=== PATIENT | male | born 1960 | race Caucasian/White ===

== ENCOUNTER 2025-03-25 10:05 | Inpatient (IN) | payer BC ==
[~2025-03-25] VITALS: Ht 172.7 cm; Wt 72.0 kg
[2025-03-25] MEDS ORDERED: ASPI-1265 PO (10:37)
[2025-03-25] MEDS ORDERED: LISI20TA28 PO (10:37)
[2025-03-25] MEDS ORDERED: FURO-150 PO (10:37)
[2025-03-25] MEDS ORDERED: PROP10TA10 PO (10:37)
--- NOTE | 2025-03-25 10:41 | Physician Documentation ---
History of Present Illness ~ Chief Complaint: Rapid Heartbeat Stated Complaint: CARDIAC SYMPTOMS Time Seen by MD: 10:07 Mode of Arrival: POV HPI 64-year-old male with a history of mitral valve prolapse presenting with chest pain and shortness of breath. Reports the chest pain started this morning about 2-3 hours ago when he was at home resting. Pain is substernal and does not radiate. He describes it more of a tightness rather than a full on pain. Additionally over the last three days he has been short of breath especially with ambulation. He also states that he feels a lot of tightness in his abdomen. States that his heart rate has been very very elevated going up into the 150s at one point. He otherwise denies any dizziness, fever, chills or any other associated symptoms. As mentioned he does have a history of mitral valve prolapse and he is set to see Dr. Elliott, medical office receptionist, on Thursday. Medication Reconciliation Allergies: Coded Allergies: No Known Allergies (Unverified , 03/25/25) Scheduled Aspirin (Aspirin), 1 TAB PO DAILY, (Reported) Furosemide* (Lasix*), 2 TAB PO DAILY, (Reported) Lisinopril (Lisinopril), 0.5 TAB PO DAILY, (Reported) Propranolol Hcl* (Inderal*), 1 TAB PO BID, (Reported) Past Medical History Past Medical History: Heart Valve Disease, Hypertension, Anxiety, Depression Review of Systems All Other Systems at this time: Reviewed and Negative Physical Exam Vital Signs: Temperature: 97.9, Source: Oral, Heart Rate: 144, Respiratory Rate: 25, BP: 142/109, Pulse Oximetry: 98, Weight: 72.730 Physical Exam I have reviewed the triage vitals. CONST: Well developed and well nourished. In no acute distress HENT: Head Atraumatic EYES: Pupils are equal, round and reactive to light. Normal conjunctiva NECK: Normal range of motion. Supple. CARDIO: Tachycardic, grade 4/6 pansystolic murmur auscultated, S1, S2. PULM/CHEST: No respiratory distress. Lungs clear to auscultation. No wheeze ABD: Soft. Minimally diffusely tender to palpation. Nondistended. Bowel sounds normal. No guarding. : Exam deferred MSK: No edema. No deformity. NEURO: Alert and oriented to person, place and time. Moving all extremities SKIN: Warm and dry. PSYCH: Normal mood and affect. Good eye contact. Progress Results/Orders Results/Orders Orders - ANG WELLS MD Culture Blood (03/25/25 10:34) Chest,Single View (03/25/25 10:34) Cta Chest Ct Abd Pelvis (03/25/25 11:12) Ultrasound Of Abdomen (03/25/25 13:38) Page Hospitalist (03/25/25 14:24) Fill Out Med Reconciliation (03/25/25 14:24) Completed Orders - ANG WELLS MD Cbc/Diff (03/25/25 10:34) CK (03/25/25 10:34) CKMB (03/25/25 10:34) D-Dimer (03/25/25 10:34) Lipase (03/25/25 10:34) Pt Inr (03/25/25 10:34) PTT (03/25/25 10:34) Chest,Single View (03/25/25 10:34) PBNP (03/25/25 10:34) MG (03/25/25 10:34) CMP (03/25/25 10:34) Hs Troponin I W Calculations (03/25/25 10:34) Hs Troponin I W Calculations (03/25/25 12:34) Hs Troponin I W Calculations (03/25/25 13:34) Lacticsepsis (03/25/25 10:34) Nitroglycerin Sublingual Tab (Nitrostat (03/25/25 10:40) Iohexol 350mg/Ml 100ml (Omnipaque 350mg/ (03/25/25 12:00) Ua W/Microscopic, Cult If Ind (03/25/25 11:48) Cta Chest Ct Abd Pelvis (03/25/25 11:12) Diphenhydramine Inj (Benadryl Inj.) (03/25/25 12:50) Ultrasound Of Abdomen (03/25/25 13:38) Furosemide Inj (Lasix Inj) (03/25/25 13:40) Normal Saline 500ml Iv Soln (Sodium Chlo (03/25/25 14:05) Piperacillin/Tazo 3.375gm/50ml (Zosyn 3. (03/25/25 14:25) Lisinopril Tablet (Zestril Tablet) (03/25/25 14:40) Medications Received in ER Medications (Trade) Dose Ordered Sig/Janene Route PRN Reason Start Time Stop Time Status Last Admin Dose Admin (Nitrostat SL tablet) 0.4 mg ONCE ONCE SL 03/25/25 10:40 03/25/25 10:41 DC 03/25/25 10:49 0.4 MG (Benadryl inj.) 25 mg ONCE ONCE IV 03/25/25 12:50 03/25/25 12:51 DC 03/25/25 12:51 25 MG (Lasix inj) 20 mg ONCE ONCE IV 03/25/25 13:40 03/25/25 13:54 DC 03/25/25 14:33 20 MG Sodium Chloride 500 ml @ 500 mls/hr ONCE ONCE IV 03/25/25 14:05 03/25/25 15:04 DC 03/25/25 14:33 500 MLS/HR Piperacillin/ Tazobactam/ Dextrose 50 ml @ 12.5 mls/hr ONCE ONCE IV 03/25/25 14:25 03/25/25 18:24 DC 03/25/25 15:27 12.5 MLS/HR (Zestril tablet) 10 mg ONCE ONCE PO 03/25/25 14:40 03/25/25 14:41 DC 03/25/25 15:50 10 MG Vital Signs 03/25/25 03/25/25 03/25/25 03/25/25 10:10 10:19 10:25 10:37 Temp 97.9 Pulse 144 122 Resp 14 25 23 B/P (MAP) 142/109 138/105 (116) Pulse Ox 96 98 97 O2 Delivery Room Air* O2 Flow Rate 0 0 FiO2 21 03/25/25 03/25/25 03/25/25 03/25/25 10:53 11:22 12:00 13:00 Temp 98.2 Pulse 136 130 130 142 Resp 24 22 19 20 B/P (MAP) 132/109 (117) 133/94 (107) 130/86 (101) 141/109 (120) Pulse Ox 99 94 96 94 O2 Flow Rate 0 0 0 0 11/06/1803/25/25 03/25/25 13:30 14:00 14:30 Pulse 141 142 142 Resp 25 26 26 B/P (MAP) 131/101 (111) 139/108 (118) 137/104 (115) Pulse Ox 95 97 97 O2 Flow Rate 0 0 0 Laboratory Tests Test 03/25/25 10:12 03/25/25 10:48 03/25/25 11:48 03/25/25 12:48 White Blood Count 8.7 Red Blood Count 4.52 L Hemoglobin 13.8 L Hematocrit 41.9 L Mean Corpuscular Volume 92.7 Mean Corpuscular Hemoglobin 30.6 Mean Corpuscular Hemoglobin Concent 33.0 Red Cell Distribution Width 15.3 H Platelet Count 245 Mean Platelet Volume 7.9 Neutrophils (%) (Auto) 64.8 Lymphocytes (%) (Auto) 21.8 Monocytes (%) (Auto) 10.8 Eosinophils (%) (Auto) 2.0 Basophils (%) (Auto) 0.6 Neutrophils # (Auto) 5.7 Lymphocytes # (Auto) 1.9 Monocytes # (Auto) 0.9 Eosinophils # (Auto) 0.2 Basophils # (Auto) 0.0 CBC Comment Prothrombin Time 11.4 INR International Normalized Ratio 1.1 Activated Partial Thromboplast Time 25 D-Dimer 0.84 H D-Dimer Comment Coagulation Comments Sodium Level 144 Potassium Level 4.2 Chloride Level 110 H Carbon Dioxide Level 29.3 Anion Gap 5 L Blood Urea Nitrogen 32 H Creatinine 0.99 Estimated GFR/1.73 m2 77 BUN/Creatinine Ratio 32.3 H Glucose Level 142 H Calcium Level 8.7 Magnesium Level 2.3 Total Bilirubin 0.8 Aspartate Amino Transf (AST/SGOT) 137 H Alanine Aminotransferase (ALT/SGPT) 163 H Alkaline Phosphatase 94 Total Creatine Kinase 90 Creatine Kinase MB 2.2 Creatine Kinase MB Relative Index Troponin I High Sensitivity 33 24 Pro-B-Type Natriuretic Peptide 3991 H Total Protein 6.4 Albumin 3.1 L Globulin 3.3 Albumin/Globulin Ratio 0.9 L Lipase 76 Chemistry Comments Lactic Acid Level 1.2 Urine Specimen Description Urinal Urine Color Yellow Urine Clarity Clear Urine pH 6.0 Urine Specific [place] 1.015 Urine Protein Negative Urine Glucose (UA) Negative Urine Ketones Negative Urine Occult Blood Trace-intact Urine Nitrite Negative Urine Bilirubin Negative Urine Urobilinogen 0.2 Urine Leukocyte Esterase Negative Urine RBC 0-2 Urine WBC 0-4 Urine Squamous Epithelial Cells Few Urine Bacteria None seen Urine Mucus Few Urine Culture Indicated Not ind Volume Urine Centrifuged 10 ml Urine Comment Urine Opiates Screen Negative Urine Methadone Screen Negative Urine Fentanyl Screen Negative Urine Barbiturates Screen Negative Urine Phencyclidine Screen Negative Urine Amphetamines Screen Negative Urine Benzodiazepines Screen Negative Urine Cocaine Screen Negative Urine Cannabinoids Screen Positive Drug Screen Comment Troponin I High Sens Percent Delta 27 Troponin I Hi Sens Absolute Change -9 Test 03/25/25 13:52 Troponin I High Sensitivity 29 Troponin I High Sens Percent Delta 20 Troponin I Hi Sens Absolute Change 5 Procalcitonin < 0.05 Microbiology Date/Time Source Procedure Growth Status 03/25/25 10:54 Blood Hand Left Blood Culture - Preliminary NEGATIVE (LESS THAN 24 HOURS) Resulted EKG/XRAY/CT/US/VASC/MRI EKG : Additional Comment EKG as interpreted by ED MD indicating sinus tachycardia at a rate of 144 beats per minute, no ischemia, right axis deviation Chest X-Ray : Additional Comments CLINICAL INFORMATION: Pain. TECHNIQUE: Single AP portable chest radiograph was obtained. COMPARISON: None FINDINGS: Lungs: Clear. Cardiac: Moderate cardiomegaly, may be accentuated due to portable AP technique. Pulmonary vasculature: Unremarkable. Mediastinum/tom: Unremarkable. Bones: No acute osseous abnormality identified. Other: No other significant findings. IMPRESSION: Moderate cardiomegaly, may be accentuated due to portable AP technique. No other evidence of acute disease in the chest. CT : Impression CLINICAL INFORMATION: Tachycardia. TECHNIQUE: Axial CTA images of the chest were obtained after the uneventful administration of 100 mL of Omnipaque [address] images of the abdomen and pelvis were obtained in the arterial and portal venous phases of contrast. Coronal and sagittal reformatted images and MIP images were obtained, reviewed, and stored. One or more of the following dose reduction techniques were used: Automated exposure control. Adjustment of mA and/or kV according to patient size. CTDIvol = 18.99, 13.29, 9.75, 9.85, 0.14 mGy DLP = 1445.4, 8.93 mGy-cm COMPARISON: DI CHEST,SINGLE VIEW on DOS: 03/25/25 FINDINGS: Pulmonary arteries: No evidence of pulmonary embolism. Aorta: There is no thoracic aortic aneurysm. There is no significant contrast opacification of the thoracic aorta on the CTA chest exam to evaluate for dissection. Moderate atherosclerotic calcification is seen. Cardiac: Moderate cardiomegaly. There is reflux of contrast into the IVC and hepatic veins, which may be seen with right heart failure. Moderate coronary artery calcification. Mediastinum/tom: No mass or adenopathy. Lungs: Irregular nodular opacity in the right lower lobe measures up to 2 cm (series 3, image 189). 0.7 cm nodule adjacent to the posterior pleural surface in the right lower lobe (image 181). 1.2 cm nodule adjacent to the posterior pleural surface in the left lower lobe (image 179). Irregular nodule adjacent to the posterior pleural surface in the left lower lobe measures up to 1.5 cm ( image 199). Chest wall: No mass or other abnormality. Abdomen and pelvis: There is no abdominal aortic aneurysm or dissection. Moderate atherosclerotic calcification of the abdominal aorta. CTA images of the abdomen and pelvis demonstrate no evidence of arterial occlusion or high-grade stenosis. No active extravasation of arterial contrast demonstrated. There is Cirrhotic liver morphology with small volume ascites. There is a hypo enhancing lesion in the right hepatic lobe near the dome measuring up to 1.6 cm, seen on the portal venous phase images, not well correlated on the arterial phase images. There is also a hypo enhancing lesion in the left hepatic lobe on the venous phase measuring up to 1.3 cm, also not well-visualized on the arterial phase images. The gallbladder is contracted. There is gallbladder wall thickening near the fundus. No definite calcified gallstones visualized on CT. The spleen, pancreas, and adrenal glands demonstrate no acute or suspicious findings. There are bilateral renal cysts. No hydronephrosis. The largest cyst measures up to 4.5 cm at the inferior pole of the left kidney. No lymphadenopathy demonstrated in the abdomen or pelvis. Nonspecific nondilated fluid-filled small bowel loops. No small bowel obstruction. Appendix appears unremarkable. There are scattered colonic diverticula without adjacent inflammatory changes to suggest diverticulitis. There are coarse central calcifications in the prostate gland. Mild circumferential thickening of the bladder wall. No significant abnormality identified in the abdominal wall. Bones: No acute fracture or suspicious intraosseous lesions. IMPRESSION: 1. No evidence for pulmonary embolism. 2. No abdominal aortic aneurysm or dissection. 3. No thoracic aortic aneurysm. Unable to evaluate for thoracic aortic dissection due to the timing of contrast on the CTA chest portion of the examination. 4. Cardiomegaly and findings suggesting a degree of right heart failure as described above. 5. Suspicious pulmonary nodules/masses as described above. Malignancy not excluded. Biopsy and/or PET-CT could be obtained to further characterize. 6. Cirrhotic liver morphology. Hypo enhancing lesions in the liver are indeterminate. Correlate with clinical findings. MRI liver mass protocol could be obtained to further characterize. 7. Contracted appearing gallbladder with gallbladder wall thickening. Acute cholecystitis not excluded in the appropriate clinical setting. If clinically indicated, ultrasound could be obtained to further characterize. 8. Small volume abdominal and pelvic ascites. 9. Nonspecific nondilated fluid-filled small bowel loops. Findings may be seen with ileus or enteritis in the appropriate clinical setting. No small bowel obstruction. 10. Circumferential thickening of the bladder wall is nonspecific. Correlate clinically to exclude cystitis. 11. Additional findings as described above. Ultrasound : Impression INDICATION: assess gallbladder TECHNIQUE: Multiple real-time sonographic images of the abdomen were obtained. COMPARISON: None FINDINGS: The liver is increased in echogenicity. The liver measures 17.9 cm. There is an echogenic mass in the right lobe measuring 1.6 x 1.6 x 1.5 cm and another measuring 2.3 x 2.0 x 1.4 cm. No intrahepatic biliary ductal dilatation is noted. The gallbladder wall measures 0.4 cm and is unremarkable. No gallstones or sludge is seen. The common duct measures 0.3 cm and is unremarkable. Mild pericholecystic fluid is noted. Negative sonographic Naranjo's sign. The right kidney measures 10.0 cm. No hydronephrosis. The pancreas is not well visualized due to obscuration from bowel gas. The visualized portions of the IVC and aorta are grossly unremarkable. IMPRESSION: 1. Hepatic steatosis. 2. Echogenic masses in the right lobe of the liver measuring up to 2.3 cm. These may represent hemangiomas. Recommend further evaluation with CT or MRI liver mass protocol. 3. Mild pericholecystic fluid without evidence of cholelithiasis or cholecystitis. This may be related to hepatocellular disease or systemic process. Medical Decision Making Additional information obtaine: N/A Findings - Differential Dx:Considerations: Include: angina / GA, atrial fibrillation, atrial flutter, PSVT, sinus tachycardia Differential Dx:Considerations: Include anxiety/panic attack, Include electrolyte disorder, Include heart failure, Include pulmonary embolus Additional Information This is a 64-year-old male presenting with what appears to be acute right-sided congestive heart failure. He does have a history of mitral prolapse and it is likely that his right-sided heart failure is secondary to this. His BNP was significantly elevated greater than 3000. He had a set of troponins which were all unremarkable. EKG did not show any ST elevations. Chest x-ray did indicate cardiomegaly. Patient was tachycardic in the 120s to 130s and this continued throughout his ED stay. He was given 20 mg of IV Lasix. A CT angiogram was performed to rule out any pulmonary embolism. The CT was negative for a PE but did confirm right-sided congestive heart failure with right heart strain. Additionally a CT of the abdomen and pelvis was performed due to the patient's abdominal symptoms. It did indicate that the patient has a thickened gallbladder wall as well as cirrhosis and some ascites. Patient's lab workup also indicated some elevated LFTs with elevated AST and ALT. Patient was given a dose of Zosyn for potential cholecystitis. Upon further history the patient did confirm drinking 6-8 beers per day with his last drink being this past . I believe there is also a component of ETOH withdrawal involved. He was given a 10 mg dose of IV Valium as well. He was also given his home dose of lisinopril for his elevated blood pressures. Patient will need a cardiology consult as well as GI consult and will need to be admitted for further treatment and care. Departure Disposition: ADMITTED INPATIENT Admitted to Inpatient Unit: to hospitalist Admission Level of Care: PCU with Tele Impression: Primary Impression: Acute right-sided congestive heart failure Additional Impressions: Tachycardia Thickening of wall of gallbladder Cirrhosis Alcohol withdrawal Condition: Guarded Referrals: NO PRIMARY CARE PROVIDER (PCP) Critical Care Note Total Time (mins): 95 Critical Care Note The very real possibility of a deterioration of this patient's condition required the highest level of my preparedness for sudden, emergent intervention. I provided critical care services, which included medication orders, frequent reevaluations of the patient's condition and response to treatment, ordering and reviewing test results, and discussing the case with various consultants. Excludes time spent performing separately billable procedures. The critical care time associated with the care of the patient was. Signature Scribe Signature: - Attestation: - ANG WELLS MD Mar 25, 2025 10:41
[2025-03-25 10:43] LABS: MEAN PLATELET VOLUME 7.9 FL (7.4-10.4); RED CELL DISTRIBUTION WIDTH 15.3 % (11.5-14.5)
[2025-03-25 10:51] LABS: APTT 25 SECONDS (22-32); INR 1.1 INR
[2025-03-25 10:52] LABS: CREATININE 0.99 MG/DL (0.60-1.10); TOTAL CARBON DIOXIDE 29.3 MMOL/L (24-32); eCRCL 75 ML/MIN; eGFR 77 ML/MIN
[2025-03-25 11:03] LABS: CREATINE KINASE MB 2.2 ng/ml (0.3-3.6); PRO BRAIN NATRIURETIC PEPTIDE 3991 PG/ML (0-125)
--- NOTE | 2025-03-25 11:53 | RADIOLOGY REPORT ---
CLINICAL INFORMATION: Pain. TECHNIQUE: Single AP portable chest radiograph was obtained. COMPARISON: None FINDINGS: Lungs: Clear. Cardiac: Moderate cardiomegaly, may be accentuated due to portable AP technique. Pulmonary vasculature: Unremarkable. Mediastinum/tom: Unremarkable. Bones: No acute osseous abnormality identified. Other: No other significant findings. IMPRESSION: Moderate cardiomegaly, may be accentuated due to portable AP technique. No other evidence of acute disease in the chest.
[2025-03-25 11:57] LABS: LEUKOCYTE ESTERASE ,URINE NEGATIVE (Neg); NITRITES, URINE NEGATIVE (Neg); OCCULT BLOOD,URINE TRACE-INTACT (Neg)
[2025-03-25 12:02] LABS: UA COLLECTION TYPE URINAL
[2025-03-25 12:09] LABS: MUCUS STRANDS FEW /LPF (Neg); SQUAMOUS EPITHELIAL CELL,UR FEW /LPF (FEW)
--- NOTE | 2025-03-25 13:27 | RADIOLOGY REPORT ---
CLINICAL INFORMATION: Tachycardia. TECHNIQUE: Axial CTA images of the chest were obtained after the uneventful administration of 100 mL of Omnipaque [address] images of the abdomen and pelvis were obtained in the arterial and portal venous phases of contrast. Coronal and sagittal reformatted images and MIP images were obtained, reviewed, and stored. One or more of the following dose reduction techniques were used: Automated exposure control. Adjustment of mA and/or kV according to patient size. CTDIvol = 18.99, 13.29, 9.75, 9.85, 0.14 mGy DLP = 1445.4, 8.93 mGy-cm COMPARISON: DI CHEST,SINGLE VIEW on DOS: 03/25/25 FINDINGS: Pulmonary arteries: No evidence of pulmonary embolism. Aorta: There is no thoracic aortic aneurysm. There is no significant contrast opacification of the thoracic aorta on the CTA chest exam to evaluate for dissection. Moderate atherosclerotic calcification is seen. Cardiac: Moderate cardiomegaly. There is reflux of contrast into the IVC and hepatic veins, which may be seen with right heart failure. Moderate coronary artery calcification. Mediastinum/tom: No mass or adenopathy. Lungs: Irregular nodular opacity in the right lower lobe measures up to 2 cm (series 3, image 189). 0.7 cm nodule adjacent to the posterior pleural surface in the right lower lobe (image 181). 1.2 cm nodule adjacent to the posterior pleural surface in the left lower lobe (image 179). Irregular nodule adjacent to the posterior pleural surface in the left lower lobe measures up to 1.5 cm (image 199). Chest wall: No mass or other abnormality. Abdomen and pelvis: There is no abdominal aortic aneurysm or dissection. Moderate atherosclerotic calcification of the abdominal aorta. CTA images of the abdomen and pelvis demonstrate no evidence of arterial occlusion or high-grade stenosis. No active extravasation of arterial contrast demonstrated. There is Cirrhotic liver morphology with small volume ascites. There is a hypo enhancing lesion in the right hepatic lobe near the dome measuring up to 1.6 cm, seen on the portal venous phase images, not well correlated on the arterial phase images. There is also a hypo enhancing lesion in the left hepatic lobe on the venous phase measuring up to 1.3 cm, also not well-visualized on the arterial phase images. The gallbladder is contracted. There is gallbladder wall thickening near the fundus. No definite calcified gallstones visualized on CT. The spleen, pancreas, and adrenal glands demonstrate no acute or suspicious findings. There are bilateral renal cysts. No hydronephrosis. The largest cyst measures up to 4.5 cm at the inferior pole of the left kidney. No lymphadenopathy demonstrated in the abdomen or pelvis. Nonspecific nondilated fluid-filled small bowel loops. No small bowel obstruction. Appendix appears unremarkable. There are scattered colonic diverticula without adjacent inflammatory changes to suggest diverticulitis. There are coarse central calcifications in the prostate gland. Mild circumferential thickening of the bladder wall. No significant abnormality identified in the abdominal wall. Bones: No acute fracture or suspicious intraosseous lesions. IMPRESSION: 1. No evidence for pulmonary embolism. 2. No abdominal aortic aneurysm or dissection. 3. No thoracic aortic aneurysm. Unable to evaluate for thoracic aortic dissection due to the timing of contrast on the CTA chest portion of the examination. 4. Cardiomegaly and findings suggesting a degree of right heart failure as described above. 5. Suspicious pulmonary nodules/masses as described above. Malignancy not excluded. Biopsy and/or PET-CT could be obtained to further characterize. 6. Cirrhotic liver morphology. Hypo enhancing lesions in the liver are indeterminate. Correlate with clinical findings. MRI liver mass protocol could be obtained to further characterize. 7. Contracted appearing gallbladder with gallbladder wall thickening. Acute cholecystitis not excluded in the appropriate clinical setting. If clinically indicated, ultrasound could be obtained to further characterize. 8. Small volume abdominal and pelvic ascites. 9. Nonspecific nondilated fluid-filled small bowel loops. Findings may be seen with ileus or enteritis in the appropriate clinical setting. No small bowel obstruction. 10. Circumferential thickening of the bladder wall is nonspecific. Correlate clinically to exclude cystitis. 11. Additional findings as described above.
[2025-03-25] MEDS: furosemide 10 MG/1 ML 10ml inj IV ONE (14:33)
[2025-03-25] MEDS: normal saline 500ml IV soln 500 ML IV ONE (14:33)
[2025-03-25] MEDS ORDERED: HYDROcodone/acetaminophen 5mg/325mg tablet PO PRN (14:45)
[2025-03-25] MEDS ORDERED: ondansetron/PF 4mg/2ml inj IV PRN (14:45)
[2025-03-25] MEDS ORDERED: potassium Cl 20 mEq SR tablet PO PRN ×2 (14:45)
[2025-03-25] MEDS ORDERED: magnesium hydroxide 30ml (MOM) UD suspension PO PRN (14:45)
[2025-03-25] MEDS ORDERED: potassium Cl 40MEQ/1/2NS 520ml 520 ML IV PRN (14:45)
[2025-03-25] MEDS ORDERED: normal saline 1000ml 1,000 ML IV SCH (14:45)
[2025-03-25] MEDS ORDERED: HYDROcodone/acetaminophen 10/325mg tab PO PRN (14:45)
[2025-03-25] MEDS ORDERED: magnesium sulf-water 2g/50mL 50 ML IV PRN (14:45)
[2025-03-25] MEDS ORDERED: magnesium Cl slow-release 64mg tablet PO PRN (14:45)
[2025-03-25] MEDS ORDERED: magnesium sulf-water 4G/100mL 100 ML IV PRN (14:45)
--- NOTE | 2025-03-25 14:51 | RADIOLOGY REPORT ---
INDICATION: assess gallbladder TECHNIQUE: Multiple real-time sonographic images of the abdomen were obtained. COMPARISON: None FINDINGS: The liver is increased in echogenicity. The liver measures 17.9 cm. There is an echogenic mass in the right lobe measuring 1.6 x 1.6 x 1.5 cm and another measuring 2.3 x 2.0 x 1.4 cm. No intrahepatic biliary ductal dilatation is noted. The gallbladder wall measures 0.4 cm and is unremarkable. No gallstones or sludge is seen. The common duct measures 0.3 cm and is unremarkable. Mild pericholecystic fluid is noted. Negative sonographic Naranjo's sign. The right kidney measures 10.0 cm. No hydronephrosis. The pancreas is not well visualized due to obscuration from bowel gas. The visualized portions of the IVC and aorta are grossly unremarkable. IMPRESSION: 1. Hepatic steatosis. 2. Echogenic masses in the right lobe of the liver measuring up to 2.3 cm. These may represent hemangiomas. Recommend further evaluation with CT or MRI liver mass protocol. 3. Mild pericholecystic fluid without evidence of cholelithiasis or cholecystitis. This may be related to hepatocellular disease or systemic process.
[2025-03-25] MEDS ORDERED: aminophylline 250mg/10ml inj. IV PRN (14:55)
[2025-03-25] MEDS ORDERED: regadenoson 0.4mg/5ml syringe IV PRN (14:55)
[2025-03-25] MEDS ORDERED: metoprolol tartrate 1mg/ml inj IV PRN (14:55)
[2025-03-25] MEDS ORDERED: metoclopramide 5 mg/ml inj IV ONE (15:00)
[2025-03-25] MEDS: piperacillin/tazo 3.375gm/50ml 50 ML IV ONE (15:27)
--- NOTE | 2025-03-25 16:02 | HISTORY AND PHYSICAL ---
History & Physical Providers to CC ~ History of Present Illness Reason for Admit\\Complaint: tami Pain , shortness of breath History of Present Illness Patient was evaluated in ER I introduced myself and mentioned to patient that I spoke to the ER physician reviewed your chart, labs and all the diagnostic workup and I need to talk to him and examine you is it okay with you? I also told him that I admitted the patient to PCU for further management and we will order the Lexiscan and Cardiology team for further management. He got very frustrated that we are ordering extra test for him for no reason . he was very irritable and disrespectful during conversation. I had to call Dr. Dodson, ER provider and he intervened in between and requested patient to stay for further management and risks explained. He showed lot of frustration and give me very brief history that he is having chest pain which comes and goes and he had similar kind of chest pain in past also this time he had the chest pain almost in our prior coming to the hospital associated with shortness of breaths. He denied any abdominal pain to me when I examine him. As per patient he does not smoke or use any recreational drugs ,does use beer couple of them on regular basis. He follows with primary care physician Suki and Dr. Angeles Elliott in outpatient setting .he feels he has never seen the 3d specialist but seen the PA in Dr. Sidhu office and they are aware about his mitral regurgitation and rest of the cardiac issues. He feels that whenever he takes Lasix his swelling over the ankles goes down and breathing gets better. In his medication list in outpatient setting he is on ibuprofen 800 mg and hydrocodone prescribed to him. Patient wants to leave AMA and trying to call his . I did discuss advanced care directive which he did not answered me properly and ER physician was there also. Patient we will be full code by default. Patient was not in a mood to talk and using bad language during conversation. he also mentioned that this is his 1st visit in the hospital and was never admitted in past. ER records reviewed including labs diagnostic workup and ER physician notes. As per ER provider's note" 64-year-old male with a history of mitral valve prolapse presenting with chest pain and shortness of breath. Reports the chest pain started this morning about 2-3 hours ago when he was at home resting. Pain is substernal and does not radiate. He describes it more of a tightness rather than a full on pain. Additionally over the last three days he has been short of breath especially with ambulation. He also states that he feels a lot of tightness in his abdomen. States that his heart rate has been very very elevated going up into the 150s at one point. He otherwise denies any dizziness, fever, chills or any other associated symptoms. As mentioned he does have a history of mitral valve prolapse and he is set to see Dr. Elliott, mri assistant, on Thursday." Allergies: Coded Allergies: No Known Allergies (Unverified , 03/25/25) Home Medications Home Medications Active Reported Aspirin 81 Mg Tab.chew 1 Tab PO DAILY 30 Days Lasix* (Furosemide) 20 Mg Tablet 2 Tab PO DAILY 30 Days Lisinopril 20 Mg Tablet 0.5 Tab PO DAILY 30 Days Inderal* (Propranolol HCl) 10 Mg Tablet 1 Tab PO BID Past Medical History Past Medical History Heart Valve Disease, Hypertension, Anxiety, Depression Past Social History Social History Comment he does not smoke or use any recreational drugs ,does use beer couple of them on regular basis. Lives with his [place] BERNARD[place] Review of systems as mentioned above in HPI. Exam Vitals: Vital Signs Date Time Temp Pulse Resp B/P (MAP) Pulse Ox O2 Delivery O2 Flow Rate FiO2 03/25/25 15:07 145 25 131/94 (106) 95 0 03/25/25 13:00 98.2 03/25/25 10:19 Room Air* 21 General: General-patient not in any acute distress, alert awake oriented, chronically ill-appearing, anxious appearing HEENT-atraumatic normocephalic, neck supple without elevated JVD, no thyromegaly or carotid bruit. No lymphadenopathy bilaterally. Eyes-no icterus or pallor seen in eyes Chest-mildly decreased lung sounds over lung bases rest of the lung sounds clear to auscultation bilaterally, breathing nonlabored no wheezing, no crepitation, no crackles. Heart-S1-S2 normal, regular heart rate no murmur, signs of tachycardia present heart rate 146 Abdomen bowel sounds positive on auscultation, soft nondistended nontender no guarding, no rigidity Skin no active skin rash Neurology-grossly intact, nonfocal alert awake oriented Extremity- no pedal edema able to move all 4 extremities Psychiatry - patient is not confused or agitated partially cooperated during physical examination. Anxious appearing, looks frustrated Diagnostic Data Last Recorded Lab Results: 03/25/25 1012 03/25/25 1012 Diagnostic Data: Laboratory Tests Test 03/25/25 10:12 Prothrombin Time 11.4 SECONDS (9.0-12.0) INR International Normalized Ratio 1.1 INR Activated Partial Thromboplast Time 25 SECONDS (22-32) D-Dimer 0.84 MG/L FEU (0-0.50) H D-Dimer Comment Coagulation Comments Additional Plan 64-year-old male with a history of mitral valve prolapse Heart Valve Disease, Hypertension, Anxiety, Depression presenting with chest pain and shortness of breath. Patient is admitted for chest pain rule out acute coronary syndrome, sinus tachycardia, possible diastolic congestive heart failure, transaminitis. ER provider contacted Dr. Angeles Elliott and he is aware regarding patient's admission and current situation. Ordered and NM Lexiscan for a.m., ordered IV Lasix but due to patient's sinus tachycardia IV fluids also ordered. Abdominal ultrasound showed Signs of hepatic steatosis, Echogenic masses in the right lobe of the liver measuring up to 2.3 cm , Mild pericholecystic fluid without evidence of cholelithiasis or cholecystitis. CTA chest , CT abdomen and pelvis done which ruled out pulmonary embolism, aortic dissection or aneurysm. Cardiomegaly and findings suggesting a degree of right heart failure. Suspicious pulmonary nodules/masses as described above. Malignancy not excluded.Cirrhotic liver morphology. Small volume abdominal and pelvic ascites. We will continue to monitor patient's labs and vitals closely . Patient is full code by default. We will do home medication reconciliation once updated in electronic by nursing staff or pharmacist. Further management depending on response to treatment and as per recommendation by 3d specialist Dr. Angeles Elliott. I will also get GI consultation for patient. I will continue to follow patient in a.m. Date of Service: Mar 25, 2025 Billing Provider: MARGO GUERRERO MD Common Visit Codes: 63782-WOYNXVN INP/OBS CARE (HIGH) MARGO GUERRERO MD Mar 25, 2025 16:02
[2025-03-25 17:12] LABS: URINE AMPHETAMINE SCREEN NEGATIVE (Neg); URINE BARBITUATE SCREEN NEGATIVE (Neg); URINE BENZODIAZEPINES SCREEN NEGATIVE (Neg); URINE CANNABINOID SCREEN POSITIVE (Neg); URINE COCAINE SCREEN NEGATIVE (Neg); URINE METHADONE SCREEN NEGATIVE (Neg); URINE OPIATE SCREEN NEGATIVE (Neg); URINE PHENCYCLIDINE SCREEN NEGATIVE (Neg)
[2025-03-25] MEDS: diazepam inj 5 MG/ML inj. IV ONE (18:18)
[2025-03-25] MEDS: metoprolol tartrate 1mg/ml inj IV ONE ×2 (18:49→19:07)
[2025-03-25] MEDS: heparin, porcine 5000 units/ml vial SQ SCH (19:07)
--- NOTE | 2025-03-25 20:31 | ELECTROCARDIOGRAPH REPORT ---
[facility] Test Date: 2025-03-25 Test Time: 10:06:09 Pat Name: DONALD CHOWDARY Department: EMERGENCY ROOM Room: [place] [address] Gender: M Field Sales Specialist: [place] : 1960 Requested By: VERENA TEJADA Order Number: [id number] Reading MD: Dr. Aidan Barton Measurements Intervals Jay Rate: 144 P: 23 IA: 65 QRS: 92 QRSD: 106 T: 27 QT: 324 QTc: 502 Interpretive Statements Sinus tachycardia Consider right atrial enlargement Right axis deviation Consider left ventricular hypertrophy Prolonged QT interval Electronically Signed On 03-28-2025 20:44:[address] Aidan Barton Please click the below link to view image of tracing.
[2025-03-26] MEDS: metoprolol tartrate 1mg/ml inj IV ONE (04:00)
[2025-03-26 07:26] LABS: MEAN PLATELET VOLUME 7.7 FL (7.4-10.4); RED CELL DISTRIBUTION WIDTH 14.9 % (11.5-14.5)
[2025-03-26 08:10] LABS: CREATININE 1.01 MG/DL (0.60-1.10); TOTAL CARBON DIOXIDE 26.9 MMOL/L (24-32); eCRCL 73 ML/MIN; eGFR 75 ML/MIN
[2025-03-26] MEDS: diltiazem-NS 100mg/100ml 100 ML IV SCH (09:09)
[2025-03-26 11:00] VITALS: BP 111/68; PULSE 95; RESP 16; TEMP 97.6; O2SAT 94
[2025-03-26 11:28] VITALS: RESP 18; O2SAT 96
--- NOTE | 2025-03-26 11:43 | ELECTROCARDIOGRAPH REPORT ---
[facility] Test Date: 2025-03-25 Test Time: 22:24:02 Pat Name: DONALD CHOWDARY Department: EMERGENCY ROOM Room: [place] [id number] B Gender: M Flat Drier: PM : 1960 Requested By: MARGO GUERRERO Order Number: [id number] Reading MD: Dr. Aidan Barton Measurements Intervals [place] Rate: 120 P: 0 NE: 0 QRS: 85 QRSD: 100 T: 83 QT: 370 QTc: 523 Interpretive Statements Atrial flutter with 2:1 AV block Ventricular premature complex Borderline right axis deviation Left ventricular hypertrophy Nonspecific T abnrm, anterolateral leads ST elevation, consider inferior injury Prolonged QT interval Electronically Signed On 03-28-2025 20:44:[address] Aidan Barton Please click the below link to view image of tracing.
[2025-03-26] MEDS: thiamine 100mg/ml 2ml inj. IV SCH (12:26)
--- NOTE | 2025-03-26 20:43 | DISCHARGE SUMMARY ---
Discharge Summary Providers to ~ Discharge Summary Admission Diagnosis: Chest pain rule out ACS, transaminitis, sinus tachycardia, abdominal pain Hospital Course DATE OF ADMISSION: March 25, 2025 DATE OF DISCHARGE: March 26, 2025 ULTRASOUND OF ABDOMENIMPRESSION: 1. Hepatic steatosis. 2. Echogenic masses in the right lobe of the liver measuring up to 2.3 cm. These may represent hemangiomas. Recommend further evaluation with CT or MRI liver mass protocol. 3. Mild pericholecystic fluid without evidence of cholelithiasis or cholecystitis. This may be related to hepatocellular disease or systemic process. CTA CHEST CT ABD PELVISIMPRESSION: 1. No evidence for pulmonary embolism. 2. No abdominal aortic aneurysm or dissection. 3. No thoracic aortic aneurysm. Unable to evaluate for thoracic aortic dissection due to the timing of contrast on the CTA chest portion of the examina tion. 4. Cardiomegaly and findings suggesting a degree of right heart failure as described above. 5. Suspicious pulmonary nodules/masses as described above. Malignancy not excluded. Biopsy and/or PET-CT could be obtained to further characterize. 6. Cirrhotic liver morphology. Hypo enhancing lesions in the liver are indeterminate. Correlate with clinical findings. MRI liver mass protocol could be obtained to further characterize. 7. Contracted appearing gallbladder with gallbladder wall thickening. Acute cholecystitis not excluded in the appropriate clinical setting. If clinically indicated, ultrasound could be obtained to further characterize. 8. Small volume abdominal and pelvic ascites. 9. Nonspecific nondilated fluid-filled small bowel loops. Findings may be seen with ileus or enteritis in the appropriate clinical setting. No small bowel obstruction. 10. Circumferential thickening of the bladder wall is nonspecific. Correlate clinically to exclude cystitis. 11. Additional findings as described above. CHEST,SINGLE VIEW-IMPRESSION: Moderate cardiomegaly, may be accentuated due to portable AP technique. No other evidence of acute disease in the chest. Discharge Diagnosis\\Comment: Chest pain rule out ACS, sinus tachycardia, possible diastolic congestive heart failure, transaminitis, alcohol use, history of mitral valve prolapse Heart Valve Disease, Hypertension, Anxiety, Depression Operations\\Procedures: None Consultants: None Complications: None Condition on DC: Stable Discharge Summary: As per my admitting history and physical note" Patient was evaluated in ER I introduced myself and mentioned to patient that I spoke to the ER physician reviewed your chart, labs and all the diagnostic workup and I need to talk to him and examine you is it okay with you? I also told him that I admitted the patient to PCU for further management and we will order the Lexiscan and Cardiology team for further management. He got very frustrated that we are ordering extra test for him for no reason . he was very irritable and disrespectful during conversation. I had to call Dr. Dodson, ER provider and he intervened in between and requested patient to stay for further management and risks explained. He showed lot of frustration and give me very brief history that he is having chest pain which comes and goes and he had similar kind of chest pain in past also this time he had the chest pain almost in our prior coming to the hospital associated with shortness of breaths. He denied any abdominal pain to me when I examine him. As per patient he does not smoke or use any recreational drugs ,does use beer couple of them on regular basis. He follows with primary care physician Suki and Dr. Angeles Elliott in outpatient setting .he feels he has never seen the corporate specialist but seen the PA in Dr. Sidhu office and they are aware about his mitral regurgitation and rest of the cardiac issues. He feels that whenever he takes Lasix his swelling over the ankles goes down and breathing gets better. In his medication list in outpatient setting he is on ibuprofen 800 mg and hydrocodone prescribed to him. Patient wants to leave AMA and trying to call his . I did discuss advanced care directive which he did not answered me properly and ER physician was there also. Patient we will be full code by default. Patient was not in a mood to talk and using bad language during conversation. he also mentioned that this is his 1st visit in the hospital and was never admitted in past. ER records reviewed including labs diagnostic workup and ER physician notes. As per ER provider's note" 64-year-old male with a history of mitral valve prolapse presenting with chest pain and shortness of breath. Reports the chest pain started this morning about 2-3 hours ago when he was at home resting. Pain is substernal and does not radiate. He describes it more of a tightness rather than a full on pain. Additionally over the last three days he has been short of breath especially with ambulation. He also states that he feels a lot of tightness in his abdomen. States that his heart rate has been very very elevated going up into the 150s at one point. He otherwise denies any dizziness, fever, chills or any other associated symptoms. As mentioned he does have a history of mitral valve prolapse and he is set to see Dr. Elliott, business systems technician, on Thursday. "64-year-old male with a history of mitral valve prolapse Heart Valve Disease, Hypertension, Anxiety, Depression presenting with chest pain and shortness of breath. Patient is admitted for chest pain rule out acute coronary syndrome, sinus tachycardia, possible diastolic congestive heart failure, transaminitis. ER provider contacted Dr. Angeles Elliott and he is aware regarding patient's admission and current situation. Ordered and NM Lexiscan for a.m., ordered IV Lasix but due to patient's sinus tachycardia IV fluids also ordered. Abdominal ultrasound showed Signs of hepatic steatosis, Echogenic masses in the right lobe of the liver measuring up to 2.3 cm , Mild pericholecystic fluid without evidence of cholelithiasis or cholecystitis. CTA chest , CT abdomen and pelvis done which ruled out pulmonary embolism, aortic dissection or aneurysm. Cardiomegaly and findings suggesting a degree of right heart failure. Suspicious pulmonary nodules/masses as described above. Malignancy not excluded.Cirrhotic liver morphology. Small volume abdominal and pelvic ascites. We continued to monitor patient's labs and vitals closely . Patient is full code by default. home medication reconciliation updated in electronic records. Cardiology consultation requested from Dr. Elliott. As per Dr.M Elliott they called to schedule heart catheterization on this patient. Patient's said that he declined. He has appointment on Thursday to discuss. He is going to need mitral valve replacement. If he wants cardiac catheterization fine otherwise keep his appointment on Thursday corporate specialist Dr. Angeles Elliott. GI consultation requested from Dr. Yu who evaluated the patient during hospitalization. Patient was started on alcohol withdrawal protocol and strongly advised to quit alcohol and risks explained. Patient is feeling better . Patient is seen and examined on the day of discharge. All labs, diagnostic workup and discharge plan discussed with patient and in detail today in visit. All questions and queries answered to the best of my professional medical knowledge. PATIENT LEFT AGAINST MEDICAL ADVICE TODAY WITH HIS General-patient not in any acute distress, alert awake oriented, chronically ill-appearing, anxious appearing HEENT-atraumatic normocephalic, neck supple without elevated JVD, no thyromegaly or carotid bruit. No lymphadenopathy bilaterally. Eyes-no icterus or pallor seen in eyes Chest-mildly decreased lung sounds over lung bases rest of the lung sounds clear to auscultation bilaterally, breathing nonlabored no wheezing, no crepitation, no crackles. Heart-S1-S2 normal, regular heart rate no murmur, signs of tachycardia present heart rate 146 Abdomen bowel sounds positive on auscultation, soft nondistended nontender no guarding, no rigidity Skin no active skin rash Neurology-grossly intact, nonfocal alert awake oriented Extremity- no pedal edema able to move all 4 extremities Psychiatry - patient is not confused or agitated partially cooperated during physical examination. Anxious appearing, *Problems/Diagnosis: (1) Tachycardia Status: Acute Total Time Spent on D/C: > 30 Minutes Date of Service: Mar 26, 2025 Billing Provider: MARGO GUERRERO MD Common Visit Codes: 32982-JMV/OBS DISCH DAY >30min MARGO GUERRERO MD Mar 26, 2025 20:38
--- NOTE | 2025-03-26 23:00 | CONSULTATION ---
DATE OF CONSULTATION: 03/25/2025 DICTATING PHYSICIAN: Sabrina Harrell MD REASON FOR CONSULTATION: Liver cirrhosis. HISTORY OF PRESENT ILLNESS: The patient is 64 years old, came in because of shortness of breath. He apparently has a history of mitral valve prolapse, presented with chest pain and shortness of breath. He does have a history of drinking 6 beers per day for many years. The shortness of breath started about 3-4 hours prior to coming to the hospital. He also had sternal chest pain without any radiation. Since he has come in, blood work and imaging studies have been done. The workup so far has revealed right heart enlargement, mild ascites, and cirrhotic liver. He has no other symptoms. He does not have a diagnosis of cirrhosis made in the past. His last drink was . PAST MEDICAL HISTORY: As mentioned above, also had a history of anxiety and depression and hypertension. FAMILY HISTORY AND PERSONAL HISTORY: Noncontributory. REVIEW OF SYSTEMS: A 12-point review of systems same as in history of present illness. PHYSICAL EXAMINATION: GENERAL: He is awake, alert, appears to be mildly short of breath, appears to be somewhat anxious, cooperative, friendly, pleasant. VITAL SIGNS: Show heart rate of 150, blood pressure of 150/100. NECK: Supple. No thyromegaly. No JVD. No significant lymphadenopathy. HEENT: Oral cavity within normal limits. HEART: Normal. LUNGS: Normal. ABDOMEN: Soft, nontender. No masses. No organomegaly. Bowel sounds are present. LABORATORY VALUES: Reviewed, which revealed a normal hemogram. No evidence of any thrombocytopenia. No evidence of any change in the MCV. Coagulation profile is normal. Chemistries were remarkable for AST of 137, ALT of 163, alkaline phosphatase 94. Bilirubin was 0.8. Total protein and albumin were normal. IMAGING STUDY: Did show cirrhotic liver with a small amount of ascites. The CT angiogram revealed moderate cardiomegaly, reflux of contrast into the IVC, hepatic veins, possibly seen in right heart failure with moderate coronary artery calcification. There was also nodular opacities in the right lung lower lobe of unclear etiology. The liver imaging also showed what could possibly be hemangiomas in addition to the cirrhotic liver. IMPRESSION: A 64-year-old gentleman admitted with right heart failure. Currently, I suspect that he may be going through some withdrawal syndrome with tachycardia and hypertension. He also seems somewhat anxious, although not tremulous. Liver cirrhosis seems to be a new diagnosis that he was unaware of. It does not seem to me at this time that he may have significant portal hypertension, although he has some ascites. The liver enzymes are modestly elevated; however, total protein and albumin are normal. The patient does not have any signs of hypersplenism including low platelet count. His coagulation profile is normal. So, I suspect this is apparently a stable liver cirrhosis. RECOMMENDATIONS: We will address the right heart failure and cardiac issues first. At this time, I will recommend no further intervention for the liver disease except for placing him on a 1.2-1.5 g/kg daily protein intake with liberal carbohydrates and fats with supplementation with zinc, vitamin D, and vitamin E and 2 g sodium diet. Regarding prophylaxis for possible esophageal varices will depend upon a diagnostic endoscopy, which can be planned after his cardiac situation is more stabilized. Discussed in detail with the patient and the family as well as the Emergency Room physician and the primary doctor. Sabrina Harrell MD TID: [id number] RECEIPT: [id number] /[facility]
--- NOTE | 2025-03-26 23:03 | PROGRESS NOTE ---
DATE: 03/26/2025 DICTATING PHYSICIAN: Sabrina Harrell MD SUBJECTIVE: The patient is awake, alert, and appears to be in no apparent distress. His vital signs are normal now. He is not tachycardic or hypertensive at this time. He has been started on beta-blockers. His latest blood pressure is 136/102 and heart rate is 147. The patient is less short of breath today. OBJECTIVE: VITAL SIGNS: As above. NECK: Supple HEART: Normal. LUNGS: Normal ABDOMEN: Soft, nontender. No masses. No organomegaly. Bowel sounds are present. EXTREMITIES: Reveal no clubbing, cyanosis or edema. CENTRAL NERVOUS SYSTEM: Within normal limits. HEMATOLOGIC: Reveals no anemia, petechiae or purpura. LABORATORY VALUES: Revealed hemoglobin of 12.8, possibly one gram drop from IV fluids and equilibration. Otherwise, no significant change. Chemistries are essentially unremarkable. AST 131, ALT 191, alkaline phosphatase 78. IMPRESSION: The patient is admitted with shortness of breath, possibly right heart failure secondary to valvular heart disease, incidentally found to have liver cirrhosis on imaging studies including ultrasound and CT scan. The patient does not have thrombocytopenia, coagulopathy, or synthetic function failure signs with low albumin. Possibly, this is a compensated liver cirrhosis. The patient has been started on a beta-tamara for cardiac conditions; however, it may or may not help the variceal situation. If he does have varices as they do so, I am not 100% sure if it is a non-selective beta-tamara or cardioselective beta-tamara. Since the patient has a new diagnosis of cirrhosis, he needs to have an endoscopy as a baseline procedure. He has not had any screening colonoscopy, which needs to be addressed as well, which can be done as an outpatient. PLAN: We will plan on an endoscopy tomorrow. The risks and benefits explained, understands and wishes to proceed. Further recommendations will be made after the endoscopy. Detailed discussion was held with the patient and the family, which they understand. There were no further questions. Sabrina Harrell MD TID: [id number] RECEIPT: [id number] [facility]
[2025-03-27] MEDS ORDERED: folic acid 1mg/0.2ml inj IV SCH (08:00)
[2025-03-27] MEDS ORDERED: multivitamins, therapeutics tablet PO SCH (08:00)
== END 2025-03-26 13:10 | disposition left against medical advice (07) | DRG 311 ==
LOC: ER 10:05 → ED HOLD 14:54 → EDBEDREQ 03-26 07:07 → PCU 3S 03-26 07:44
PROVIDERS: ADMIT Internal Medicine; ATTEND Internal Medicine
PROC: B32T1ZZ Computerized Tomography (CT Scan) of Left Pulmonary Artery using Low Osmolar Contrast (ICD-10-PCS; principal; 2025-03-25)
PROC: B3201ZZ Computerized Tomography (CT Scan) of Thoracic Aorta using Low Osmolar Contrast (ICD-10-PCS; 2025-03-25)
PROC: B32S1ZZ Computerized Tomography (CT Scan) of Right Pulmonary Artery using Low Osmolar Contrast (ICD-10-PCS; 2025-03-25)
DX: I24.9 Acute ischemic heart disease, unspecified (principal); R18.8 Other ascites; F10.939 Alcohol use, unspecified with withdrawal, unspecified; I50.30 Unspecified diastolic (congestive) heart failure; I11.0 Hypertensive heart disease with heart failure; I34.0 Nonrheumatic mitral (valve) insufficiency; K76.0 Fatty (change of) liver, not elsewhere classified; K74.60 Unspecified cirrhosis of liver; Z53.21 Procedure and treatment not carried out due to patient leaving prior to being seen by health care provider; F32.A Depression, unspecified; F41.9 Anxiety disorder, unspecified; Z95.2 Presence of prosthetic heart valve
CPT/HCPCS: 36415; 71045; 71275; 74177; 76700; 80053; 80305; 81001; 82550; 82553; 83605; 83690; 83735; 83880; 84145; 84484; 85025; 85379; 85610; 85651; 85730; 87040; 87081; 93005; 96365; 96375; 96376; 99291; 99292; G0378; J1200; J1644; J1938; J2543; J3360; J3411; J3490; J7030; J7040; Q9967